=== PATIENT | male | born 1995 | race Caucasian/White ===

== ENCOUNTER 2016-10-16 14:28 | Emergency (ER) | payer SELFPAY ==
[~2016-10-16] VITALS: Ht 182.9 cm; Wt 95.5 kg
[~2016-10-16 14:28] MED LIST: ABILIFY2 MG; ALLEGRA60 MG PO; AMOXICILLIN 50500 MG PO; AMOXICILLIN875 MG PO; AUGMENTIN 875 M1 TAB PO; BACTRIM DS 8001 TAB PO; BACTRIM PO; CEPHALEXIN500 M1 PO; CIPRO 500MG TA500 MG PO; CLEOCIN HC150 MG/CAP PO; CLINDAMYCIN150 MG PO; DOXYCYCLINE 10100 MG PO; DURICEF PO; FLEXERIL 1010 MG/TAB PO; FLEXERIL10 MG PO; GUAIFEN-PSE 6001 TER PO; HYDROCODONE/APAP PO; ILOTYCIN5 MG/GM OP; IMITREX 25MG TA25 MG PO; IMITREX50 MG PO; LORTAB 5/500 501 TAB PO; MEDROL 4MG DOSPA4 MG PO; MOTRIN 800800 MG/TAB PO; MOTRIN IB200 MG PO; MUCINEX D1 TER PO; NAPROSYN500 MG PO; NO HOME MEDICATIONS; NORCO 325 MG-51 TAB PO; NORCO 325 MG-7.1 TAB PO; NORFLEX100 MG PO; PERCOCET 325 MG1 TA2 PO; PHENERGAN 25 TA25 MG PO; PREDNISONE10 MG PO; PRELONE15 MG/5 ML PO; REMERON15 MG PO; ROBAXIN 50500 MG/TAB PO; ROBAXIN 75750 MG/TAB PO; RT ADVAIR 128 DISKUS IH; SKELAXIN 4400 MG/TAB PO; SKELAXIN 800MG800 MG PO; SKELAXIN800 MG PO; TUSS PO; ULTRAM 50MG TAB50 MG PO; VALIUM5 MG PO; VENTOLIN0.09 MG IH; WELLBUTRIN100 MG PO; ZANAFLEX2 MG PO; ZITHROMAX Z PA250 MG PO; ZITHROMAX500 M2 PO; ZOFRAN 4MG T4 MG/TAB PO; ZOLOFT 50MG50 MG PO; [UNRECOGNIZED DRUG - OTHER]
[2016-10-16 16:48] VITALS: BP 152/68; PULSE 88; TEMP 98
== END 2016-10-16 16:48 | disposition home or self-care (01) ==
LOC: COL.ER 14:28
DX: T22.211A Burn of second degree of right forearm, initial encounter (principal); M54.5 Low back pain; X17.XXXA Contact with hot engines, machinery and tools, initial encounter
CPT/HCPCS: J1885

== ENCOUNTER → 2016-10-22 | Emergency (ER) | payer SELFPAY ==
[~2016-10-22] VITALS: Ht 182.9 cm; Wt 105.0 kg
[2016-10-22 08:03] VITALS: BP 138/80; PULSE 87; TEMP 98.6
== END ==
LOC: COL.ER 08:01
DX: T22.011D Burn of unspecified degree of right forearm, subsequent encounter (principal); X08.8XXD Exposure to other specified smoke, fire and flames, subsequent encounter

== ENCOUNTER 2016-11-19 18:56 | Emergency (ER) | payer SELFPAY ==
[~2016-11-19] VITALS: Ht 182.9 cm; Wt 103.5 kg
[2016-11-19 19:04] VITALS: TEMP 98
[2016-11-19 19:56] LABS: BASO % 0.1 % (0.0-2.0); EOS # 0.1 (0.0-0.7); EOS % 1.5 % (0-4.0); GRAN # 4.6 (1.4-6.5); GRAN % 58.8 % (42.2-75.2); HEMATOCRIT 41.6 % (42.0-52.0); HEMOGLOBIN 14.6 g/dl (13.5-18.0); LYMPH # 2.5 (1.2-3.4); LYMPH % 31.6 % (20.0-51.0); MEAN CELL VOLUME 86 fl (80.0-100.0); MEAN CORPUSCULAR HEMOGLOBIN 30 pg (27.0-31.0); MEAN CORPUSCULAR HGB CONC 35 g/dl (33.0-37.0); MONO # 0.6 (0.1-0.6); MONO % 7.9 % (1.7-9.3); PLATELET COUNT 203 K/mm3 (130-400); RED BLOOD COUNT 4.83 M/mm3 (4.20-5.60); REDCELL DISTRIBUTION WIDTH-CV 11.9 % (11.5-14.5); WHITE BLOOD COUNT 7.8 K/mm3 (4.8-10.8)
[2016-11-19 20:04] LABS: ADJUSTED CALCIUM 8.6 mg/dL (8.4-10.2); ALBUMIN 4.2 gm/dL (3.5-5.0); BILIRUBIN,TOTAL 0.7 mg/dL (0.0-1.0); CALCIUM 8.8 mg/dL (8.4-10.2); CREATININE, serum 1.02 mg/dL (0.66-1.25); POTASSIUM 3.5 mmol/L (3.4-5.0); TOTAL PROTEIN 6.9 gm/dL (6.4-8.2)
[2016-11-19 20:27] LABS: PH 5 (5-8); SQUAMOUS EPITHELIAL None Seen /hpf; URINE APPEARANCE Clear; URINE BACTERIA None Seen /hpf; URINE BILIRUBIN Negative (NEGATIVE); URINE BLOOD Negative (NEGATIVE); URINE COLOR Yellow; URINE GLUCOSE Negative (NEGATIVE); URINE KETONE Trace (NEGATIVE); URINE RBC 0-2 /hpf; URINE UROBILINOGEN Negative (NEGATIVE); URINE WBC 0-2 /hpf
[2016-11-19 20:54] VITALS: BP 139/78; PULSE 76
== END 2016-11-19 20:54 | disposition home or self-care (01) ==
LOC: COL.ER 18:56
PROVIDERS: Emergency Medicine
DX: T67.9XXA Effect of heat and light, unspecified, initial encounter (principal); X30.XXXA Exposure to excessive natural heat, initial encounter
CPT/HCPCS: J7030

== ENCOUNTER 2016-12-14 09:23 | Emergency (ER) | payer SELFPAY ==
[~2016-12-14] VITALS: Ht 182.9 cm; Wt 100.0 kg
[2016-12-14 09:26] VITALS: BP 131/99; TEMP 97.9
[2016-12-14 11:22] VITALS: PULSE 89
== END 2016-12-14 11:23 | disposition home or self-care (01) ==
LOC: COL.ER 09:23
DX: S33.9XXA Sprain of unspecified parts of lumbar spine and pelvis, initial encounter (principal); S39.012A Strain of muscle, fascia and tendon of lower back, initial encounter; X50.0XXA Overexertion from strenuous movement or load, initial encounter
CPT/HCPCS: J1170; J1885

== ENCOUNTER 2016-12-20 16:54 | Emergency (ER) | payer SELFPAY ==
[~2016-12-20] VITALS: Ht 182.9 cm; Wt 100.0 kg
[2016-12-20 16:56] VITALS: TEMP 98.4
[2016-12-20 18:00] LABS: BASO % 0.3 % (0.0-2.0); EOS # 0.1 (0.0-0.7); EOS % 1.9 % (0-4.0); GRAN # 4.3 (1.4-6.5); GRAN % 58.6 % (42.2-75.2); HEMATOCRIT 41.2 % (42.0-52.0); HEMOGLOBIN 14.2 g/dl (13.5-18.0); LYMPH # 2.2 (1.2-3.4); MEAN CELL VOLUME 86 fl (80.0-100.0); MEAN CORPUSCULAR HEMOGLOBIN 30 pg (27.0-31.0); MEAN CORPUSCULAR HGB CONC 35 g/dl (33.0-37.0); MEAN PLATELET VOLUME 9.8 fl (7.4-10.4); MONO # 0.7 (0.1-0.6); MONO % 8.8 % (1.7-9.3); PLATELET COUNT 180 K/mm3 (130-400); RED BLOOD COUNT 4.77 M/mm3 (4.20-5.60); REDCELL DISTRIBUTION WIDTH-CV 12.3 % (11.5-14.5); WHITE BLOOD COUNT 7.4 K/mm3 (4.8-10.8)
[2016-12-20 18:02] LABS: PH 6 (5-8); SQUAMOUS EPITHELIAL None Seen /hpf; URINE APPEARANCE Clear; URINE BACTERIA None Seen /hpf; URINE BILIRUBIN Negative (NEGATIVE); URINE BLOOD Negative (NEGATIVE); URINE COLOR Yellow; URINE GLUCOSE Negative (NEGATIVE); URINE KETONE Negative (NEGATIVE); URINE RBC None Seen /hpf; URINE UROBILINOGEN Negative (NEGATIVE); URINE WBC 0-2 /hpf
[2016-12-20 18:20] LABS: ADJUSTED CALCIUM 8.6 mg/dL (8.4-10.2); ALBUMIN 4.1 gm/dL (3.5-5.0); BILIRUBIN,TOTAL 0.5 mg/dL (0.0-1.0); C-REACTIVE PROTEIN 1.3 mg/dL (0.0-0.9); CALCIUM 8.7 mg/dL (8.4-10.2); CREATININE, serum 0.87 mg/dL (0.66-1.25); POTASSIUM 3.8 mmol/L (3.4-5.0); TOTAL PROTEIN 6.7 gm/dL (6.4-8.2)
[2016-12-20] MEDS ORDERED: DOXYCYCLINE 10100 MG PO (19:57)
[2016-12-20 20:20] VITALS: BP 118/80; PULSE 71
== END 2016-12-20 20:21 | disposition home or self-care (01) ==
LOC: COL.ER 16:54
PROVIDERS: Emergency Medicine
DX: M54.5 Low back pain (principal); K59.00 Constipation, unspecified; L03.316 Cellulitis of umbilicus
CPT/HCPCS: J1885; J2550; J7030

== ENCOUNTER 2017-02-17 10:45 | Emergency (ER) | payer MEDICAID ==
[~2017-02-17] VITALS: Ht 182.9 cm; Wt 100.0 kg
[2017-02-17 10:53] VITALS: BP 151/70; PULSE 82; TEMP 98.8
== END 2017-02-17 12:33 | disposition home or self-care (01) ==
LOC: COL.ER 10:45
DX: G89.29 Other chronic pain (principal); M54.5 Low back pain; F17.210 Nicotine dependence, cigarettes, uncomplicated
CPT/HCPCS: J1885; J3360

== ENCOUNTER 2017-05-01 14:08 | Emergency (ER) | payer MEDICAID ==
[~2017-05-01] VITALS: Ht 182.9 cm; Wt 100.0 kg
[2017-05-01 14:16] VITALS: PULSE 99; TEMP 98.3
[2017-05-01 15:10] LABS: BASO % 0.3 % (0.0-2.0); EOS # 0.1 (0.0-0.7); EOS % 1.3 % (0-4.0); GRAN # 4.6 (1.4-6.5); GRAN % 59.8 % (42.2-75.2); HEMATOCRIT 40.3 % (42.0-52.0); HEMOGLOBIN 14.1 g/dl (13.5-18.0); LYMPH # 2.3 (1.2-3.4); LYMPH % 30.3 % (20.0-51.0); MEAN CELL VOLUME 86 fl (80.0-100.0); MEAN CORPUSCULAR HEMOGLOBIN 30 pg (27.0-31.0); MEAN CORPUSCULAR HGB CONC 35 g/dl (33.0-37.0); MEAN PLATELET VOLUME 9.8 fl (7.4-10.4); MONO # 0.6 (0.1-0.6); PLATELET COUNT 217 K/mm3 (130-400); WHITE BLOOD COUNT 7.7 K/mm3 (4.8-10.8)
[2017-05-01 15:12] LABS: COLLECTION METHOD CLEAN CATCH
[2017-05-01 15:21] LABS: ADJUSTED CALCIUM 8.9 mg/dL (8.4-10.2); ALBUMIN 3.9 gm/dL (3.5-5.0); BILIRUBIN,TOTAL 0.6 mg/dL (0.0-1.0); CALCIUM 8.8 mg/dL (8.4-10.2); CREATININE, serum 1.08 mg/dL (0.66-1.25); POTASSIUM 3.5 mmol/L (3.4-5.0); TOTAL PROTEIN 6.5 gm/dL (6.4-8.2)
[2017-05-01 15:56] LABS: MUCOUS Present /lpf; PH 6 (5-8); SQUAMOUS EPITHELIAL None Seen /hpf; URINE APPEARANCE Clear; URINE BACTERIA None Seen /hpf; URINE BILIRUBIN Negative (NEGATIVE); URINE BLOOD Negative (NEGATIVE); URINE COLOR Yellow; URINE GLUCOSE Negative (NEGATIVE); URINE KETONE Negative (NEGATIVE); URINE LEUKOCYTE ESTERASE Negative (NEGATIVE); URINE PROTEIN(semi-quant) Negative (NEGATIVE); URINE RBC 0-2 /hpf; URINE UROBILINOGEN Negative (NEGATIVE)
[2017-05-01 16:39] VITALS: BP 123/71
[2017-05-01 16:58] LABS: TSH w REFLEX 1.54 uIU/mL (0.465-4.680)
== END 2017-05-01 16:40 | disposition home or self-care (01) ==
LOC: COL.ER 14:08
PROVIDERS: Nurse Practitioner
DX: R06.02 Shortness of breath (principal); R53.83 Other fatigue; F17.210 Nicotine dependence, cigarettes, uncomplicated; Z98.890 Other specified postprocedural states
CPT/HCPCS: J7030

== ENCOUNTER 2017-07-02 06:34 | Emergency (ER) | payer SELFPAY ==
[~2017-07-02] VITALS: Ht 182.9 cm; Wt 103.2 kg
[2017-07-02 06:52] VITALS: BP 141/60; TEMP 97.9
[2017-07-02 08:48] VITALS: PULSE 77
== END 2017-07-02 08:48 | disposition home or self-care (01) ==
LOC: COL.ER 06:34
DX: R07.89 Other chest pain (principal); F17.210 Nicotine dependence, cigarettes, uncomplicated

== ENCOUNTER 2017-07-29 12:10 | Emergency (ER) | payer SELFPAY ==
[~2017-07-29] VITALS: Ht 182.9 cm; Wt 100.0 kg
[2017-07-29 12:12] VITALS: BP 143/79; TEMP 98.3
[2017-07-29 12:49] LABS: INFLUENZA A NEGATIVE; INFLUENZA B NEGATIVE
[2017-07-29 13:15] VITALS: PULSE 96
== END 2017-07-29 13:16 | disposition home or self-care (01) ==
LOC: COL.ER 12:10
PROVIDERS: Physician Assistant
DX: B34.9 Viral infection, unspecified (principal); F17.210 Nicotine dependence, cigarettes, uncomplicated

== ENCOUNTER 2017-11-20 16:19 | Emergency (ER) | payer SELFPAY ==
[~2017-11-20] VITALS: Ht 182.9 cm; Wt 97.7 kg
[2017-11-20 16:25] VITALS: BP 141/73; TEMP 97.8
[2017-11-20 17:01] VITALS: PULSE 86
== END 2017-11-20 17:01 | disposition home or self-care (01) ==
LOC: COL.ER 16:19
DX: S39.012A Strain of muscle, fascia and tendon of lower back, initial encounter (principal); X58.XXXA Exposure to other specified factors, initial encounter
CPT/HCPCS: J1100

== ENCOUNTER 2018-02-19 09:44 | Emergency (ER) | payer SELFPAY ==
[~2018-02-19] VITALS: Ht 182.9 cm; Wt 99.1 kg
[2018-02-19 09:51] VITALS: BP 128/75; TEMP 99.2
[2018-02-19 10:10] LABS: COLLECTION METHOD CLEAN CATCH
[2018-02-19 10:16] LABS: BASO % 0.4 % (0.0-2.0); EOS # 0.1 (0.0-0.7); GRAN # 4.8 (1.4-6.5); GRAN % 68.9 % (42.2-75.2); HEMATOCRIT 45.8 % (42.0-52.0); HEMOGLOBIN 16.2 g/dl (13.5-18.0); LYMPH # 1.5 (1.2-3.4); LYMPH % 21.1 % (20.0-51.0); MEAN CELL VOLUME 84 fl (80.0-100.0); MEAN CORPUSCULAR HEMOGLOBIN 30 pg (27.0-31.0); MEAN CORPUSCULAR HGB CONC 35 g/dl (33.0-37.0); MEAN PLATELET VOLUME 10.1 fl (7.4-10.4); MONO # 0.6 (0.1-0.6); MONO % 8.2 % (1.7-9.3); PLATELET COUNT 252 K/mm3 (130-400); RED BLOOD COUNT 5.45 M/mm3 (4.20-5.60)
[2018-02-19 10:20] LABS: MUCOUS Present /lpf; PH 6 (5-8); SQUAMOUS EPITHELIAL 0-2 /hpf; URINE APPEARANCE Clear; URINE BACTERIA None Seen /hpf; URINE BILIRUBIN Negative (NEGATIVE); URINE BLOOD Negative (NEGATIVE); URINE COLOR Yellow; URINE GLUCOSE Negative (NEGATIVE); URINE KETONE Negative (NEGATIVE); URINE LEUKOCYTE ESTERASE Negative (NEGATIVE); URINE NITRATE Negative (NEGATIVE); URINE PROTEIN(semi-quant) 1+ (NEGATIVE); URINE RBC 0-2 /hpf
[2018-02-19 10:37] LABS: ALBUMIN 4.5 gm/dL (3.5-5.0); BILIRUBIN,TOTAL 0.9 mg/dL (0.0-1.0); CALCIUM 9.2 mg/dL (8.4-10.2); CREATININE, serum 0.91 mg/dL (0.66-1.25); POTASSIUM 3.6 mmol/L (3.4-5.0); TOTAL PROTEIN 7.5 gm/dL (6.4-8.2)
[2018-02-19 10:38] LABS: C-REACTIVE PROTEIN 0.5 mg/dL (0.0-0.9)
[2018-02-19 11:18] VITALS: PULSE 71
== END 2018-02-19 11:16 | disposition home or self-care (01) ==
LOC: COL.ER 09:44
PROVIDERS: Physician Assistant
DX: K52.9 Noninfective gastroenteritis and colitis, unspecified (principal); F17.210 Nicotine dependence, cigarettes, uncomplicated
CPT/HCPCS: J7030

== ENCOUNTER 2018-07-18 18:22 | Emergency (ER) | payer SELFPAY ==
[~2018-07-18] VITALS: Ht 182.9 cm; Wt 90.9 kg
[2018-07-18] MEDS ORDERED: TYLENOL 500MG500 MG PO (18:51)
[2018-07-18] MEDS ORDERED: IBU800 M1 PO (18:52)
[2018-07-18] MEDS ORDERED: PREDNISONE20 MG PO (19:26)
[2018-07-18] MEDS ORDERED: CLEOCIN HCL300 MG PO (19:26)
[2018-07-18] MEDS ORDERED: ZOFRAN ODT4 MG PO (19:26)
[2018-07-18 19:38] LABS: BASO % 0.3 % (0.0-2.0); EOS # 0.1 (0.0-0.7); EOS % 0.7 % (0-4.0); GRAN # 6.5 (1.4-6.5); HEMATOCRIT 46.1 % (42.0-52.0); HEMOGLOBIN 15.7 g/dl (13.5-18.0); LYMPH # 2.3 (1.2-3.4); LYMPH % 23.5 % (20.0-51.0); MEAN CELL VOLUME 89 fl (80.0-100.0); MEAN CORPUSCULAR HEMOGLOBIN 30 pg (27.0-31.0); MEAN CORPUSCULAR HGB CONC 34 g/dl (33.0-37.0); MEAN PLATELET VOLUME 9.4 fl (7.4-10.4); MONO # 0.8 (0.1-0.6); MONO % 8.1 % (1.7-9.3); PLATELET COUNT 289 K/mm3 (130-400); RED BLOOD COUNT 5.18 M/mm3 (4.20-5.60); REDCELL DISTRIBUTION WIDTH-CV 12.4 % (11.5-14.5)
[2018-07-18 19:48] LABS: ALBUMIN 4.3 gm/dL (3.5-5.0); BILIRUBIN,TOTAL 0.3 mg/dL (0.0-1.0); CALCIUM 9.3 mg/dL (8.4-10.2); CREATININE, serum 0.83 mg/dL (0.66-1.25); POTASSIUM 3.8 mmol/L (3.4-5.0); TOTAL PROTEIN 8.2 gm/dL (6.4-8.2)
[2018-07-18 19:52] VITALS: BP 110/73; PULSE 90; TEMP 97.2
== END 2018-07-18 19:52 | disposition home or self-care (01) ==
LOC: COL.ER 18:22
PROVIDERS: Physician Assistant
DX: B00.2 Herpesviral gingivostomatitis and pharyngotonsillitis (principal)
CPT/HCPCS: J1100; J1885

== ENCOUNTER 2019-12-02 17:53 | Emergency (ER) | payer SELFPAY ==
[~2019-12-02] VITALS: Ht 182.9 cm; Wt 93.6 kg
[~2019-12-02 17:53] MED LIST changes: +CLEOCIN HCL300 MG PO; +IBU800 M1 PO; +PREDNISONE20 MG PO; +TYLENOL 500MG500 MG PO; +ZOFRAN ODT4 MG PO
[2019-12-02 17:59] VITALS: BP 116/79; PULSE 100; TEMP 98.1
[2019-12-02] MEDS ORDERED: CLEOCIN HCL300 MG PO (18:41)
[2019-12-02] MEDS ORDERED: NORCO 325 MG-51 TAB PO (18:41)
== END 2019-12-02 18:47 | disposition home or self-care (01) ==
LOC: COL.ER 17:53
DX: K02.9 Dental caries, unspecified (principal); F90.9 Attention-deficit hyperactivity disorder, unspecified type

== ENCOUNTER 2019-12-28 21:00 | Emergency (ER) | payer SELFPAY ==
[~2019-12-28] VITALS: Ht 182.9 cm; Wt 95.9 kg
[2019-12-28 21:08] VITALS: BP 125/82; TEMP 98.2
[2019-12-28 21:58] LABS: COLLECTION METHOD CLEAN CATCH
[2019-12-28 22:03] LABS: BASO % 0.3 % (0.0-2.0); EOS # 0.1 (0.0-0.7); GRAN # 4.2 (1.4-6.5); GRAN % 59.5 % (42.2-75.2); HEMATOCRIT 42.4 % (42.0-52.0); HEMOGLOBIN 14.3 g/dl (13.5-18.0); LYMPH # 2.1 (1.2-3.4); LYMPH % 29.3 % (20.0-51.0); MEAN CELL VOLUME 86 fl (80.0-100.0); MEAN CORPUSCULAR HEMOGLOBIN 29 pg (27.0-31.0); MEAN CORPUSCULAR HGB CONC 34 g/dl (33.0-37.0); MEAN PLATELET VOLUME 9.4 fl (7.4-10.4); MONO # 0.7 (0.1-0.6); MONO % 9.6 % (1.7-9.3); PLATELET COUNT 251 K/mm3 (130-400); RED BLOOD COUNT 4.91 M/mm3 (4.20-5.60); REDCELL DISTRIBUTION WIDTH-CV 12.6 % (11.5-14.5)
[2019-12-28 22:05] LABS: MUCOUS Present /lpf; PH 6 (5-8); SQUAMOUS EPITHELIAL None Seen /hpf; URINE APPEARANCE Clear; URINE BACTERIA None Seen /hpf; URINE BILIRUBIN Negative (NEGATIVE); URINE BLOOD Negative (NEGATIVE); URINE COLOR Yellow; URINE GLUCOSE Negative (NEGATIVE); URINE KETONE Negative (NEGATIVE); URINE LEUKOCYTE ESTERASE Negative (NEGATIVE); URINE NITRATE Negative (NEGATIVE); URINE PROTEIN(semi-quant) Negative (NEGATIVE); URINE RBC 0-2 /hpf
[2019-12-28 22:12] LABS: BILIRUBIN,TOTAL 0.3 mg/dL (0.0-1.0); CALCIUM 8.8 mg/dL (8.4-10.2); CREATININE, serum 0.73 (0.66-1.25); POTASSIUM 3.7 mmol/L (3.4-5.0); TOTAL PROTEIN 7.4 gm/dL (6.4-8.2)
[2019-12-28] MEDS ORDERED: CLEOCIN HC150 MG/CAP PO (22:16)
[2019-12-28 22:34] VITALS: PULSE 99
== END 2019-12-28 22:34 | disposition home or self-care (01) ==
LOC: COL.ER 21:00
PROVIDERS: Physician Assistant
DX: K08.89 Other specified disorders of teeth and supporting structures (principal); R60.9 Edema, unspecified; F17.210 Nicotine dependence, cigarettes, uncomplicated; Z79.52 Long term (current) use of systemic steroids

== ENCOUNTER 2020-03-08 12:46 | Emergency (ER) | payer SELFPAY ==
[~2020-03-08] VITALS: Ht 182.9 cm; Wt 90.9 kg
[2020-03-08 13:05] VITALS: TEMP 97.9
[2020-03-08] MEDS ORDERED: CLEOCIN HCL300 MG PO ×2 (14:15→14:28)
[2020-03-08] MEDS ORDERED: WELLBUTRIN 75MG75 MG PO (14:23)
[2020-03-08 14:40] VITALS: BP 105/70; PULSE 92
== END 2020-03-08 14:40 | disposition home or self-care (01) ==
LOC: COL.ER 12:46
DX: K02.9 Dental caries, unspecified (principal); F17.210 Nicotine dependence, cigarettes, uncomplicated; Z88.0 Allergy status to penicillin; Z88.1 Allergy status to other antibiotic agents; Z88.6 Allergy status to analgesic agent

== ENCOUNTER 2024-02-21 12:47 | Emergency (ER) | payer BC ==
[~2024-02-21] VITALS: Ht 182.9 cm; Wt 109.1 kg
[~2024-02-21 12:47] MED LIST changes: +WELLBUTRIN 75MG75 MG PO
[2024-02-21] MEDS ORDERED: LR 1,000 ML IV ONE (13:15)
[2024-02-21] MEDS ORDERED: Ondansetron 4 MG/2 ML VIAL IV ONE (13:15)
[2024-02-21] MEDS ORDERED: Ketorolac 15 MG/ML VIAL IV ONE (13:15)
[2024-02-21 13:54] LABS: BASO % 0.4 % (0.0-2.0); EOS % 0.2 % (0.0-4.0); GRAN # 6.2 K/mm3 (1.4-6.5); GRAN % 76.5 % (42.2-75.2); HEMATOCRIT 45.4 % (42.0-52.0); HEMOGLOBIN 15.8 g/dl (13.5-18.0); LYMPH # 0.8 K/mm3 (1.2-3.4); MEAN CELL VOLUME 86 fl (80.0-100.0); MEAN CORPUSCULAR HEMOGLOBIN 30 pg (27-31); MEAN CORPUSCULAR HGB CONC 35 g/dl (33.0-37.0); MEAN PLATELET VOLUME 9.6 fl (7.4-10.4); MONO % 12.8 % (1.7-9.3); PLATELET COUNT 187 K/mm3 (130-400); RED BLOOD COUNT 5.28 M/mm3 (4.20-5.60); REDCELL DISTRIBUTION WIDTH-CV 11.9 % (11.5-14.5)
[2024-02-21 14:11] LABS: BILIRUBIN,TOTAL 0.6 mg/dL (0.2-1.2); CALCIUM 9.2 mg/dL (8.4-10.2); TOTAL PROTEIN 7.1 g/dl (6.2-8.1)
[2024-02-21 16:10] VITALS: BP 114/56; PULSE 84; TEMP 99.3
== END 2024-02-21 16:10 | disposition home or self-care (01) ==
LOC: COL.ER 12:47
PROVIDERS: Emergency Medicine
DX: U07.1 COVID-19 (principal); R50.9 Fever, unspecified; R51.9 Headache, unspecified; R11.2 Nausea with vomiting, unspecified
CPT/HCPCS: J1885; J2405; J7120